=== PATIENT | female | born 1975 | race Caucasian/White ===

== ENCOUNTER → 2018-06-13 | Outpatient (CLI) | payer BC ==
--- NOTE | 2018-06-13 11:52 | MR ---
EXAMINATION TYPE: MR liv/braxton wo con DATE OF EXAM: 06/13/2018 COMPARISON: NONE HISTORY: Cervicalgia / Low back pain TECHNIQUE: T1 and T2 axial and sagittal images of the lumbar spine are submitted. FINDINGS: There is no abnormal signal seen within the visualized spinal cord or paraspinal soft tissu es. At L1-2 there is no disc herniation or canal stenosis. Hypertrophic changes facets. No foraminal encr oachment. At L2-3 there is mild degenerative disc disease and moderate facet arthropathy. Mild circumferential disc bulging but no canal stenosis. Neural foramina remain patent. At L3-4 there is moderate degenerative disc disease. Broad-based central and left paracentral disc bu lging but no focal herniation or canal stenosis. Mild left neural foraminal encroachment. At L4-5 there is moderate facet arthropathy. Mild central disc bulging. No Canal stenosis. No foramin al encroachment. At L5-S1 there is loss of disc signal and space with evidence of facet arthropathy. No foraminal encr oachment or canal stenosis. Mild central disc bulging but no discrete herniation. IMPRESSION: 1. Multilevel degenerative disc disease and facet arthropathy with the most marked findings at L3-L4. 2. Multilevel disc bulging but no evidence of focal herniation or canal stenosis. EXAMINATION TYPE: MR liv/braxton wo con DATE OF EXAM: 06/13/2018 COMPARISON: NONE HISTORY: Cervicalgia / Low back pain TECHNIQUE: T1 sagittal and coronal, T2 sagittal, and gradient echo axial views of the cervical spine are submitted. FINDINGS: Exam limited by motion artifact. The cranial cervical junction is preserved. There is no abnormal signal seen within the spinal cord or paraspinal soft tissues. There is loss the normal cervical lordosis. At C2-3 there is no disc herniation or canal stenosis. No foraminal encroachment. At C3-4 there is no disc herniation or canal stenosis. No foraminal encroachment. At C4-5 there is no disc herniation or canal stenosis. Mild uncal foraminal hypertrophy. No foraminal encroachment. At C5-6 there is very minimal central disc bulging but no canal stenosis. Motion artifact limits asse ssment of this level. Neural foramina are grossly patent and no obvious canal stenosis. At C6-7 there is degenerative disc disease with vertebral body hemangioma C7. Broad-based central and right paracentral disc bulging or small protrusion. Mild effacement of thecal sac and right-sided fo raminal encroachment. No Canal stenosis. At C7-T1 there is no disc herniation or canal stenosis. No foraminal encroachment. IMPRESSION: Limited exam due to severe motion artifact. 1. Multilevel mild degenerative disc disease with most marked findings at C6-C7. 2. Broad-based central and right paracentral disc bulging or small protrusion C6-C7 with mild right f oraminal encroachment. No Canal stenosis. 3. Mild central disc bulging C5-C6 with no canal stenosis or foraminal encroachment.
== END ==
LOC: RADMRIMAIN 08:08
PROVIDERS: ATTEND Psychiatry & Neurology Neurology
DX: M50.222 Other cervical disc displacement at C5-C6 level (principal); M50.323 Other cervical disc degeneration at C6-C7 level; M51.26 Other intervertebral disc displacement, lumbar region; M51.36 Other intervertebral disc degeneration, lumbar region; M46.96 Unspecified inflammatory spondylopathy, lumbar region
CPT/HCPCS: 72141; 72148

== ENCOUNTER 2018-08-03 17:50 | Inpatient (IN) | payer BC ==
[2018-08-03] MEDS ORDERED: HEPARIN SODIUM,PORCINE 5,000 UNIT/ML 1 ML VIAL SQ STA (18:02)
[2018-08-03] MEDS ORDERED: PIPERACILLIN-TAZOBACTAM 3.375 GM in SODIUM CHLORIDE 0.9% 100 ML IVPB STA (18:07)
[2018-08-03] MEDS ORDERED: MIDAZOLAM (PF) 2 MG/2 ML VIAL IV PRN (18:38)
[2018-08-03] MEDS ORDERED: fentaNYL (PF) 50 MCG/ML 2 ML AMP IV PRN (18:38)
--- NOTE | 2018-08-03 18:39 | ED ---
Abdominal Pain HPI - General Chief Complaint: Abdominal Pain Stated Complaint: Abd pain Time Seen by Provider: 08/03/18 17:50 Source: patient, RN/MD, EMS, RN notes reviewed, old records reviewed Mode of arrival: EMS Limitations: no limitations - History of Present Illness Initial Comments: This is a 43-year-old female with a benign history who was seen at [facility] today after some having abdominal pain since yesterday. She was seen here and diagnosed with acute appendicitis. She was transferred here for evaluation and surgical repair. She was given IV pain medication at the hospital as well as in route to. She still complains of 10/10 right lower quadrant lower abdominal pain. She states her last meal was at 4 AM. She denies any other complaints at this time MD Complaint: abdominal pain - Related Data Home Medications Medication Instructions Recorded Confirmed Gabapentin [Neurontin] 300 mg PO TID 08/03/18 08/03/18 HYDROcodone/APAP 7.5-325MG [[place] 1 tab PO BID PRN 08/03/18 08/03/18 7.5-325] Ibuprofen [Motrin] 800 mg PO TID PRN 08/03/18 08/03/18 traZODone HCL 100 mg PO HS 08/03/18 08/03/18 Allergies Allergy/AdvReac Type Severity Reaction Status Date / Time No Known Allergies Allergy Verified 08/03/18 18:20 Review of Systems ROS Statement: Those systems with pertinent positive or pertinent negative responses have been documented in the HPI. ROS Other: All systems not noted in ROS Statement are negative. Past Medical History Additional Past Medical History / Comment(s): CHRONIC BACK PAIN History of Any Multi-Drug Resistant Organisms: None Reported Past Surgical History: Hernia Repair Past Psychological History: No Psychological Hx Reported Smoking Status: Current every day smoker Past Alcohol Use History: None Reported Past Drug Use History: None Reported General Exam - General Exam Comments Initial Comments: This is a well-developed well-nourished awake alert oriented 3 female Limitations: no limitations General appearance: alert, anxious, in distress Head exam: Present: atraumatic, normocephalic, normal inspection Eye exam: Present: normal appearance, PERRL, EOMI. Absent: scleral icterus, conjunctival injection, periorbital swelling ENT exam: Present: normal exam, mucous membranes moist Neck exam: Present: normal inspection. Absent: tenderness, meningismus, lymphadenopathy Respiratory exam: Present: normal lung sounds bilaterally. Absent: respiratory distress, wheezes, rales, rhonchi, stridor Cardiovascular Exam: Present: regular rate, normal rhythm, normal heart sounds. Absent: systolic murmur, diastolic murmur, rubs, gallop, clicks GI/Abdominal exam: Present: soft, tenderness (Right lower quadrant has palpation voluntary guarding.), normal bowel sounds. Absent: distended, guarding, rebound, rigid, bruit, pulsatile mass Extremities exam: Present: normal inspection, full ROM, normal capillary refill. Absent: tenderness, pedal edema, joint swelling, calf tenderness Back exam: Present: normal inspection Neurological exam: Present: alert, oriented X3, CN II-XII intact Psychiatric exam: Present: normal affect, anxious Skin exam: Present: warm, dry, intact, normal color. Absent: rash Course Vital Signs 08/03/18 17:52 Temperature 98.2 F Pulse Rate 82 Respiratory 16 Rate Blood Pressure 137/82 O2 Sat by Pulse 100 Oximetry Medical Decision Making - Medical Decision Making Did review the imaging the materials presented from the other hospital. Patient does have evidence of acute appendicitis. I did discuss case with Dr. Wadsworth. Patient be admitted for appendectomy. It appears antibiotics or not given prior to arrival here she was given Zosyn IV. Disposition Clinical Impression: Acute abdomen, Appendicitis, acute Disposition: ADMITTED IP TO THIS HOSP Condition: Serious Referrals: Loraine Cruz, BRANDY [Primary Care Provider] - 1-2 days
[2018-08-03] MEDS ORDERED: NALOXONE 0.4 MG/ML 1 ML VIAL IV PRN (18:40)
[2018-08-03 18:55] LABS: INR 1.1 (<1.2); Prothrombin Time 11.2 sec (9.0-12.0)
--- NOTE | 2018-08-03 19:22 | P.GSHP ---
History of Present Illness H&P Date: 08/03/18 This is a 43 y/o female who began experiencing abdominal pain yesterday. It today she states the pain got worse and moved to her RLQ. She is nauseated and has been vomiting. She has the chills. She states she has a previous history of incarcerated umbilical hernia repair with mesh. SHe also takes norco for backpain. Past Medical History Additional Past Medical History / Comment(s): CHRONIC BACK PAIN History of Any Multi-Drug Resistant Organisms: None Reported Past Surgical History: Hernia Repair Past Psychological History: No Psychological Hx Reported Smoking Status: Current every day smoker Past Alcohol Use History: None Reported Past Drug Use History: None Reported Medications and Allergies Home Medications Medication Instructions Recorded Confirmed Type Gabapentin [Neurontin] 300 mg PO TID 08/03/18 08/03/18 History HYDROcodone/APAP 7.5-325MG [[place] 1 tab PO BID PRN 08/03/18 08/03/18 History 7.5-325] Ibuprofen [Motrin] 800 mg PO TID PRN 08/03/18 08/03/18 History traZODone HCL 100 mg PO HS 08/03/18 08/03/18 History Allergies Allergy/AdvReac Type Severity Reaction Status Date / Time No Known Allergies Allergy Verified 08/03/18 18:20 Surgical - Exam Osteopathic Statement: *. No significant issues noted on an osteopathic structural exam other than those noted in the History and Physical/Consult. Vital Signs Temp Pulse Resp BP Pulse Ox 98.2 F 82 16 137/82 100 08/03/18 17:52 08/03/18 17:52 08/03/18 17:52 08/03/18 17:52 08/03/18 17:52 - General well developed, well nourished - Eyes PERRL - Neck trachea midline - Respiratory normal expansion, normal respiratory effort - Cardiovascular Rhythm: regular - Abdomen Soft Non distended, TTP RLQ. - Neurologic normal coordination, normal sensation - Psychiatric oriented to time, oriented to person, oriented to place Assessment and Plan Assessment: Acute appendicitis Plan: Plan for NPO, IV abx, discussed laparascopic appendectomy with possible open with patient. Risks and benefits inculding bleeding infection and damage to surrounding tissue were discussed and patient understood, agreed and consented.
[2018-08-03] MEDS ORDERED: SODIUM CHLORIDE 0.9% 500 ML 500 ML IV ONE (19:38)
[2018-08-03] MEDS ORDERED: PROPOFOL 10 MG/ML 20 ML VIAL IV ONE (19:38)
[2018-08-03] MEDS ORDERED: fentaNYL (PF) 50 MCG/ML 2 ML AMP ONE (19:38)
[2018-08-03] MEDS ORDERED: MIDAZOLAM 2 MG/2 ML VIAL ONE (19:38)
[2018-08-03] MEDS ORDERED: SUCCINYLCHOLINE CHLORIDE 100 MG/5 ML SYR IV ONE (19:38)
[2018-08-03] MEDS ORDERED: ROCURONIUM BROMIDE 10 MG/ML 10 ML VIAL IV ONE (19:38)
[2018-08-03] MEDS ORDERED: BUPIVACAIN-EPI 0.25%-1:200,000 30 ML VIAL SQ ONE (19:38)
[2018-08-03] MEDS ORDERED: LIDOCAINE 1% INJ 10MG/ML (20 ML MDV) ONE (19:38)
[2018-08-03] MEDS ORDERED: LACTATED RINGERS 1,000 ML IV ONE (20:04)
--- NOTE | 2018-08-03 20:23 | P.OP ---
Date of Procedure: 08/03/18 Preoperative Diagnosis: Acute appendicitis Postoperative Diagnosis: same Procedure(s) Performed: Laparoscopic appendectomy Anesthesia: MAXIMO Surgeon: Bird Wadsworth Estimated Blood Loss (ml): 5 Condition: stable Disposition: floor Description of Procedure: The patient is brought to the operative suite remained supine position underwent general endotracheal anesthesia per Department of anesthesia prepped and draped usual sterile fashion timeout performed correct patient correct procedure correct site was verified. A 5 mm incision was made at palmers 0.2 fingerbreadths below the costal margin in the midclavicular line. Using a 5 mm Visiport the abdomen was entered under direct visualization and insufflated. There was no adhesions were previous umbilical hernia repair. A 5 mm port was placed suprapubic and a 12 mm port was placed in the left lower quadrant. The patient was placed in Trendelenburg right side up and the base of the cecum was identified the appendix was identified at the base the cecum it was noted to be acutely inflamed. The mesoappendix is taken down with a LigaSure device hemostasis was noted using a 60 mm purple load Endo WILLIAN stapler the appendix was stapled across at the base of the cecum. The appendix placed in Endo Catch bag and removed through the 12 mm port site. The staple line was inspected hemostasis was noted. The 12 mm port site fascia was then closed with an 0 Vicryl suture in interrupted fashion with 8 of a Anthony-Nigel suture passer. Abdomen was desufflated skin incisions were closed with 4-0 Vicryl subcuticular sutures. Sterile dressing was applied patient tolerated procedure well no apparent complications
[2018-08-03] MEDS ORDERED: ONDANSETRON 4 MG/2 ML VIAL IVP PRN (20:25)
[2018-08-03 22:33] VITALS: BMI 29.4
[2018-08-04] MEDS: LACTATED RINGERS 1,000 ML IV SCH ×2 (00:30→05:53)
[2018-08-04] MEDS: HYDROcodone/APAP 7.5-325MG 1 EACH TAB PO PRN ×3 (00:30→13:10)
[2018-08-04] MEDS: HYDROmorphone 1 MG/ML 1 ML SYRINGE IVP PRN ×2 (02:46→08:49)
[2018-08-04 07:02] VITALS: BP 100/68; PULSE 88; RESP 16; TEMP 98.3
--- NOTE | 2018-08-04 13:39 | P.DS ---
Providers Date of admission: 08/03/18 18:40 Attending physician: Bird Wadsworth DO Primary care physician: [facility] Course: Patient presented to the hospital on 08/03/2018 as a transfer from [place] with acute appendicitis. She is brought to the operating room that night underwent laparoscopic appendectomy which was uneventful. The following day 12/2018 patient was stable her pain was significantly improved she was tolerating her diet and she is discharged home in stable conditions with instructions to follow-up with her primary care physician and myself within 2 weeks. She was instructed not to lift anything over 20 pounds for 3 weeks. Patient states she understood and agreed was discharged home in stable condition Patient Condition at Discharge: Stable Plan - Discharge Summary Discharge Rx Participant: No New Discharge Prescriptions: New HYDROcodone/APAP 7.5-325MG [[place] 7.5-325] 1 tab PO Q6HR PRN 3 Days #12 tab PRN Reason: Pain No Action traZODone HCL 100 mg PO HS HYDROcodone/APAP 7.5-325MG [[place] 7.5-325] 1 tab PO BID PRN PRN Reason: Pain Gabapentin [Neurontin] 300 mg PO TID Ibuprofen [Motrin] 800 mg PO TID PRN PRN Reason: Pain Discharge Medication List Gabapentin [Neurontin] 300 mg PO TID 08/03/18 [History] HYDROcodone/APAP 7.5-325MG [[place] 7.5-325] 1 tab PO BID PRN 08/03/18 [History] Ibuprofen [Motrin] 800 mg PO TID PRN 08/03/18 [History] traZODone HCL 100 mg PO HS 08/03/18 [History] HYDROcodone/APAP 7.5-325MG [[place] 7.5-325] 1 tab PO Q6HR PRN 3 Days #12 tab 01/15 [Rx] Follow up Appointment(s)/Referral(s): Bird Wadsworth DO [Emergency Provider] - 2 Weeks Activity/Diet/Wound Care/Special Instructions: Patient may shower, no submerging wound for 3 weeks. No heavy lifting over 20lbs for 3 weeks. Discharge Disposition: HOME SELF-CARE
== END 2018-08-04 15:20 | disposition home or self-care (01) | DRG 343 ==
LOC: EC 17:50 → 4SSUR 18:40
PROVIDERS: ADMIT Student in an Organized Health Care Education/Training Program; ATTEND Student in an Organized Health Care Education/Training Program
PROC: 0DTJ4ZZ Resection of Appendix, Percutaneous Endoscopic Approach (ICD-10-PCS; principal; 2018-08-03 19:30)
DX: K35.80 Unspecified acute appendicitis (principal); M54.9 Dorsalgia, unspecified; G89.29 Other chronic pain; F17.200 Nicotine dependence, unspecified, uncomplicated; Z71.6 Tobacco abuse counseling; Z79.899 Other long term (current) drug therapy
CPT/HCPCS: 36415; 85610; 88304; 96365; 96372; 99285

== ENCOUNTER 2019-03-18 00:18 | Emergency (ER) | payer BC, OTHER ==
[2019-03-18 00:41] VITALS: BP 136/89; PULSE 75; RESP 18; TEMP 98.4
--- NOTE | 2019-03-18 01:52 | XR ---
EXAM: XR Right Hand Complete, 3 or More Views CLINICAL HISTORY: ITS.REASON XR Reason: Pain TECHNIQUE: Frontal, lateral and oblique views of the right hand. COMPARISON: No relevant prior studies available. FINDINGS: Bones/joints: Unremarkable. No acute fracture. No dislocation. Soft tissues: Unremarkable. No radiopaque foreign body. IMPRESSION: Normal right hand x-rays.
--- NOTE | 2019-03-18 02:04 | ED ---
Upper Extremity HPI - General Chief Complaint: Extremity Injury, Upper Stated Complaint: IHS Finger Injury Time Seen by Provider: 03/18/19 01:26 Source: patient Mode of arrival: ambulatory Limitations: no limitations - History of Present Illness Initial Comments: 43-year-old male patient presents to the emergency department today for evaluation of right hand injury. Patient states last night at work a handle broke off of a part and slammed down on top of her hand. Patient states over the last 24 hours the hand has become bruised and swollen. The patient states she has increased pain with movement. Denies any numbness or tingling to the hand. Denies any other injuries.Patient denies any headache, neck pain, back pain, chest pain, shortness of breath, dizziness, weakness, abdominal pain, nausea, vomiting, or difficulties with bowel movements or urination. - Related Data Home Medications Medication Instructions Recorded Confirmed Gabapentin [Neurontin] 300 mg PO TID 08/03/18 08/03/18 HYDROcodone/APAP 7.5-325MG [[place] 1 tab PO BID PRN 08/03/18 08/03/18 7.5-325] Ibuprofen [Motrin] 800 mg PO TID PRN 08/03/18 08/03/18 traZODone HCL 100 mg PO HS 08/03/18 08/03/18 Previous Rx's Medication Instructions Recorded HYDROcodone/APAP 7.5-325MG [[place] 1 tab PO Q6HR PRN 3 Days #12 tab 08/04/18 7.5-325] Allergies Allergy/AdvReac Type Severity Reaction Status Date / Time No Known Allergies Allergy Verified 03/18/19 00:41 Review of Systems ROS Statement: Those systems with pertinent positive or pertinent negative responses have been documented in the HPI. ROS Other: All systems not noted in ROS Statement are negative. Past Medical History Additional Past Medical History / Comment(s): CHRONIC BACK PAIN, History of Any Multi-Drug Resistant Organisms: None Reported Past Surgical History: Appendectomy, Hernia Repair Past Anesthesia/Blood Transfusion Reactions: No Reported Reaction Past Psychological History: Anxiety, Depression Smoking Status: Current every day smoker Past Alcohol Use History: None Reported Past Drug Use History: None Reported - Past Family History Father Family Medical History: Myocardial Infarction ([place]) General Exam Limitations: no limitations General appearance: alert, in no apparent distress, other (Physical well- developed, well-nourished adult female patient in no acute distress. Vital signs upon presentation are temperature 98.4F, pulse 75, respirations 18, blood pressure 136/89, pulse ox 97% on room air.) Respiratory exam: Present: normal lung sounds bilaterally. Absent: respiratory distress, wheezes, rales, rhonchi, stridor Cardiovascular Exam: Present: regular rate, normal rhythm, normal heart sounds. Absent: systolic murmur, diastolic murmur, rubs, gallop, clicks Extremities exam: Present: full ROM, normal capillary refill, other (Patient has ecchymosis and swelling noted to the right index finger and over the dorsal aspect of the hand. Radial pulses 2+ and equal bilaterally. Remainder of skin is pink, warm, dry. Patient exhibits full range of motion. Cap refill less than 3 seconds.). Absent: normal inspection, tenderness, pedal edema, joint swelling, calf tenderness Neurological exam: Present: alert, oriented X3, CN II-XII intact Psychiatric exam: Present: normal affect, normal mood Skin exam: Present: warm, dry, intact, normal color. Absent: rash Course Vital Signs 03/18/19 00:37 Temperature 98.4 F Pulse Rate 75 Respiratory 18 Rate Blood Pressure 136/89 O2 Sat by Pulse 97 Oximetry Medical Decision Making - Medical Decision Making 43-year-old female patient presented to the emergency department today for evaluation of right hand injury. Physical examination did reveal ecchymosis and soft tissue swelling noted over the right second MCP joint and the right index finger. Neurovascular status was intact. X-ray was obtained and reviewed and showed no evidence for acute fracture. Patient be discharged home with instructions to take Tylenol Motrin for pain control. She is educated regarding ice and elevation. She is instructed to follow-up with her primary care physician for recheck in 1-2 days. Return parameters were discussed in detail. She verbalizes understanding and agrees with this plan. - Radiology Data Radiology results: report reviewed, image reviewed 3 views of the right hand are obtained. Report was reviewed in its entirety. Impression by Dr. Sibley shows normal right hand x-rays. Disposition Clinical Impression: Contusion of right hand Disposition: HOME SELF-CARE Condition: Good Instructions (If sedation given, give patient instructions): Contusion in Adults (ED) Additional Instructions: Rest, ice, elevate the hand. Take Tylenol and Motrin for pain control. Follow- up with your primary care physician for recheck in 1-2 days. Return to the emergency department immediately for any new, worsening, or concerning symptoms. Is patient prescribed a controlled substance at d/c from ED?: No Referrals: None,Stated [Primary Care Provider] - 1-2 days Time of Disposition: 02:04
== END 2019-03-18 02:21 | disposition home or self-care (01) ==
LOC: EC 00:18
DX: S60.021A Contusion of right index finger without damage to nail, initial encounter (principal); F17.200 Nicotine dependence, unspecified, uncomplicated; G89.29 Other chronic pain; M54.9 Dorsalgia, unspecified; F41.9 Anxiety disorder, unspecified; F32.9 Major depressive disorder, single episode, unspecified; Z79.899 Other long term (current) drug therapy; W23.1XXA Caught, crushed, jammed, or pinched between stationary objects, initial encounter; Y92.69 Other specified industrial and construction area as the place of occurrence of the external cause; Y99.0 Civilian activity done for income or pay
CPT/HCPCS: 99283

== ENCOUNTER → 2019-03-27 | Outpatient (CLI) | payer OTHER ==
--- NOTE | 2019-03-27 17:00 | XR ---
EXAMINATION TYPE: XR hand complete RT DATE OF EXAM: 03/27/2019 COMPARISON: 03/18/2019 HISTORY: Pain and injury TECHNIQUE: 3 views FINDINGS: Metacarpals appear intact. I see no fracture nor dislocation. There are no erosions. There is no subluxation. IMPRESSION: Negative right hand exam. Second metacarpal is intact. No change.
== END | disposition home or self-care (01) ==
LOC: RADXRMAIN 16:13
PROVIDERS: ATTEND Emergency Medicine
DX: S60.221D Contusion of right hand, subsequent encounter (principal)

== ENCOUNTER → 2022-10-26 | Outpatient (CLI) | payer OTHER ==
--- NOTE | 2022-10-26 15:15 | CT ---
EXAMINATION TYPE: CT lumbar spine wo con DATE OF EXAM: 10/26/2022 COMPARISON: CT abdomen and pelvis 08/03/2018 [facility] HISTORY: low back pain. CT DLP: 1894.30 mGycm CONTRAST: None TECHNIQUE: CT of the lumbar spine is performed on a spiral scan at 3 mm thick sections. Reconstructed images are performed in the coronal and sagittal planes. FINDINGS: Note is made of stimulator leads within the thoracic spinal canal entering at T10-T11 T12-L1: No focal disc herniation or significant disc bulge is evident. No spinal canal stenosis or neural foraminal stenosis is present. L1-L2: No focal disc herniation or significant disc bulge is evident. No spinal canal stenosis or n eural foraminal stenosis is present L2-L3: Mild disc bulge is present with anterior thecal sac contact. No spinal canal stenosis present. Neural foramen are patent. No spinal canal stenosis or neural foraminal stenosis is present L3-L4: Minimal residual disc bulge is present with anterior thecal sac contact. No AP spinal canal st enosis present. There is loss of disc height at this level. Sclerosis is along the endplates. Endplat e subchondral cyst formation appears to be present. This is progressive from the comparison study. Ve rtebral body heights are preserved. Alignment is preserved. Severe left and moderate right foraminal stenosis is present. L4-L5: There is broad base disc bulge which is greater in the left paracentral region. This is mild-t o-moderate anterior thecal sac impression. Severe left foraminal stenosis is present from disc bulgin g. Moderate right foraminal narrowing is present. L5-S1: No focal disc herniation or significant disc bulge is evident. No spinal canal stenosis. Fac et degenerative changes are present L5-S1 Vertebral alignment appears normal. IMPRESSION: 1. Loss of disc height with endplate changes and sclerosis along with subchondral cysts at the L3-4 l evel is progressive from 2019. 2. Large broad-based disc bulge L3-4 with moderate left paracentral thecal sac compression and contri buting to severe left foraminal stenosis at this level. 3. Moderate right foraminal narrowing L3-4 and L4-5.
== END | disposition home or self-care (01) ==
LOC: RADCTMAIN 13:27
PROVIDERS: ATTEND Psychiatry & Neurology Neurology
DX: M51.17 Intervertebral disc disorders with radiculopathy, lumbosacral region (principal); M99.73 Connective tissue and disc stenosis of intervertebral foramina of lumbar region; M43.8X6 Other specified deforming dorsopathies, lumbar region
CPT/HCPCS: 72131